=== PATIENT | male | born 1945 | race Caucasian/White ===

== ENCOUNTER → 2020-08-15 02:22 | Outpatient (CLI) | payer MEDICARE, BC, SELFPAY ==
[2020-08-15 19:19] LABS: SARS-CoV-2 RNA PCR Negative
== END ==
PROVIDERS: PCP Family Medicine; Visit Provider Internal Medicine Gastroenterology
DX: Z01.812 Encounter for preprocedural laboratory examination (principal); Z20.822 Contact with and (suspected) exposure to COVID-19
CPT/HCPCS: C9803; U0003; U0005

== ENCOUNTER 2020-08-18 00:06 | Day surgery (SDC) | payer MEDICARE, BC, SELFPAY ==
[2020-08-05 14:42] VITALS: BMI 37.8
--- NOTE | 2020-08-18 07:25 | WPDANESEPPF ---
Anes - Initial Pre Proc Eval Procedure: Operation Date: 08/18/20 08:30 Proposed Procedures p Screening Colonoscopy - Pravin Wang DO Date/Time: 08/18/20 07:25 Surgeon: Pravin Wang DO Pre Op Diagnosis: hx of colon polyps Patient Data Age: 74 Gender: M Height: 5 ft 11 in Weight: 123 kg Allergies Allergy/AdvReac Type Severity Reaction Status Date / Time bacitracin Allergy Intermediate Hives Verified 08/18/20 07:27 Penicillins Allergy Intermediate Hives Verified 08/18/20 07:27 adhesive Allergy Unknown RASH Verified 08/18/20 07:27 gramicidin D Allergy Unknown hives, Verified 08/18/20 07:27 blisters neomycin Allergy Unknown Blister, Verified 08/18/20 07:27 hives polymyxin B Allergy Unknown Hives Verified 08/18/20 07:27 mupirocin AdvReac Intermediate Swelling Verified 08/18/20 07:27 Home Medications Medication Instructions Recorded Confirmed Type apixaban 5 mg tablet 5 mg PO BID 03/12/19 08/05/20 History aspirin 81 mg tablet,delayed 81 mg PO DAILY 03/12/19 08/05/20 History release metoprolol succinate 25 mg 25 mg PO DAILY 03/12/19 08/05/20 History tablet,extended release 24 hr budesonide-formoterol HFA 160 2 puff INHALATION Q12H #10.2 gm 02/23/20 08/05/20 Rx mcg-4.5 mcg/actuation aerosol inhaler albuterol sulfate 90 mcg/actuation 2 inh INHALATION Q6H PRN #36 g 02/25/20 08/05/20 Rx aerosol inhaler cholecalciferol (vitamin D3) 1,250 1,250 mcg PO WEEKLY 56 Days #8 cap 06/24/20 08/05/20 Rx mcg (50,000 unit) capsule omeprazole 20 mg capsule,delayed 20 mg PO DAILY #90 cap 06/24/20 08/05/20 Rx release evolocumab [Repatha Pushtronex] 420 mg SUBCUT MONTHLY 08/05/20 08/05/20 History furosemide 40 mg PO DAILY 08/05/20 08/05/20 History Patient hx anesthesia problems: none Family hx anesthesia problems: none PMFSH Past Medical History Medical History (Updated 08/18/20 @ 07:27 by Myke Puckett MD) Atrial fibrillation and flutter BMI 38.0-38.9,adult BMI 39.0-39.9,adult COPD (chronic obstructive pulmonary disease) Coronary artery disease of bypass graft of [place] heart with stable angina pectoris COVID-19 Essential (primary) hypertension GERD (gastroesophageal reflux disease) Hyperlipidemia PINKY (obstructive sleep apnea) Pacemaker Stage 3 chronic kidney disease TIA (transient ischemic attack) Family History Family History Sibling Family history of heart disease in male family member before age 55 Father Acute myocardial infarction Mother Diabetes mellitus Sibling Family history of heart disease in male family member before age 55 Heart disease Diabetes mellitus Other Family history of cardiovascular disease Hypertension Social History Social History Smoking status: Never smoker Second hand tobacco smoke exposure: Yes Alcohol intake: current Alcohol use details: very rarely Substance use: never Substance use type: does not use Living arrangements: with family 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 Questions were solicited and answers provided to the satisfaction of the patient/family/POA.
[2020-08-18 07:31] VITALS: BP 134/75; PULSE 73; RESP 20; TEMP 36.4; O2SAT 98; BMI 38.0
[2020-08-18] MEDS: LACTATED RINGERS 1,000 ML 150 ML IV CONT (07:42)
--- NOTE | 2020-08-18 08:21 | WPDGICN ---
GI Consult Note Consult date/time: 08/18/20 08:21 HPI: Reason for visit is colonoscopy. This very pleasant gentleman seen in consultation request primary physician. Impression: Screening and surveillance colonoscopy. The patient has a history of adenomatous colon polyps. Patient does have alternating constipation and diarrhea. He has a history of lymphocytic colitis. There may be a component of IBS. GERD well controlled on medication. AFib status post pacemaker. Obesity. COPD. History is COVID-19. CAD. Status post coronary bypass grafting x2. HTN. HLD. TIA. PINKY. CKD. Recommendation: Colonoscopy. History: This very pleasant gentleman complains of occasional constipation and diarrhea. He has a history of adenomatous colon polyps and lymphocytic colitis. He has history reflux disease well controlled on medication. Physical examination: General: very pleasant patient in no acute distress. HEENT: Head was normocephalic sclerae is clear mouth without masses neck was supple. Heart: Rate rhythm regular without S3 or S4. Lungs: CTA. Abdomen: Soft with no guarding or rigidity. Bowel sounds were active. Neurologic: Cranial nerves 2 through 12 intact. No focal defects. No clonus. Musculoskeletal system: Revealed no joint tenderness or swelling no muscle atrophy. Extremities: Reveal no significant edema. Skin: Warm and dry with normal turgor. Mental status: intact. Patient is alert and oriented. Review of Systems Review of Systems: All systems reviewed & are unremarkable except as noted in HPI and below PMFSH Past Medical History Medical History (Updated 08/18/20 @ 07:45 by Pravin Wang, ) Adenomatous colon polyp Atrial fibrillation and flutter BMI 38.0-38.9,adult BMI 39.0-39.9,adult COPD (chronic obstructive pulmonary disease) Coronary artery disease of bypass graft of [place] heart with stable angina pectoris COVID-19 Essential (primary) hypertension GERD (gastroesophageal reflux disease) Hyperlipidemia Lymphocytic colitis PINKY (obstructive sleep apnea) Pacemaker Stage 3 chronic kidney disease TIA (transient ischemic attack) Family History Family History Sibling Family history of heart disease in male family member before age 55 Father Acute myocardial infarction Mother Diabetes mellitus Sibling Family history of heart disease in male family member before age 55 Heart disease Diabetes mellitus Other Family history of cardiovascular disease Hypertension Social History Social History Smoking status: Never smoker Second hand tobacco smoke exposure: Yes Alcohol intake: current Alcohol use details: very rarely Substance use: never Substance use type: does not use Living arrangements: with family 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 Gender identity (if verbalized by the patient): Male Spiritual care concerns: No Meds Home Medications and Allergies Home Medications Medication Instructions Recorded Confirmed Type apixaban 5 mg tablet 5 mg PO BID 03/12/19 08/18/20 History aspirin 81 mg tablet,delayed 81 mg PO DAILY 03/12/19 08/18/20 History release metoprolol succinate 25 mg 25 mg PO DAILY 03/12/19 08/18/20 History tablet,extended release 24 hr budesonide-formoterol HFA 160 2 puff INHALATION Q12H #10.2 gm 02/23/20 08/18/20 Rx mcg-4.5 mcg/actuation aerosol inhaler albuterol sulfate 90 mcg/actuation 2 inh INHALATION Q6H PRN #36 g 02/25/20 08/18/20 Rx aerosol inhaler cholecalciferol (vitamin D3) 1,250 1,250 mcg PO WEEKLY 56 Days #8 cap 06/24/20 08/18/20 Rx mcg (50,000 unit) capsule omeprazole 20 mg capsule,delayed 20 mg PO DAILY #90 cap 06/24/20 08/18/20 Rx release evolocumab [Repatha Pushtronex] 420 mg SUBCUT MONTHLY
[2020-08-18 08:46] VITALS: BP 128/68; PULSE 71; RESP 14; O2SAT 98
[2020-08-18 08:56] VITALS: BP 112/68; PULSE 70; RESP 16; O2SAT 98
[2020-08-18 09:06] VITALS: BP 129/69; PULSE 70; RESP 16; O2SAT 98
== END 2020-08-18 09:23 | disposition home or self-care (01) ==
PROVIDERS: PCP Family Medicine; Visit Provider Internal Medicine Gastroenterology
PROC: 0DJD8ZZ Inspection of Lower Intestinal Tract, Via Natural or Artificial Opening Endoscopic (ICD-10-PCS; CPT 45378; principal; 2020-08-18 08:30)
DX: Z12.11 Encounter for screening for malignant neoplasm of colon (principal); D12.2 Benign neoplasm of ascending colon; D12.4 Benign neoplasm of descending colon; K57.30 Diverticulosis of large intestine without perforation or abscess without bleeding; K64.8 Other hemorrhoids; R19.4 Change in bowel habit; I48.91 Unspecified atrial fibrillation; J44.9 Chronic obstructive pulmonary disease, unspecified; I25.10 Atherosclerotic heart disease of native coronary artery without angina pectoris; I12.9 Hypertensive chronic kidney disease with stage 1 through stage 4 chronic kidney disease, or unspecified chronic kidney disease; N18.30 Chronic kidney disease, stage 3 unspecified; E78.5 Hyperlipidemia, unspecified; G47.33 Obstructive sleep apnea (adult) (pediatric); K21.9 Gastro-esophageal reflux disease without esophagitis; Z95.1 Presence of aortocoronary bypass graft; Z95.0 Presence of cardiac pacemaker; Z86.16 Personal history of COVID-19; Z86.73 Personal history of transient ischemic attack (TIA), and cerebral infarction without residual deficits; Z79.01 Long term (current) use of anticoagulants; Z79.82 Long term (current) use of aspirin; Z79.51 Long term (current) use of inhaled steroids; E66.9 Obesity, unspecified; Z68.38 Body mass index [BMI] 38.0-38.9, adult
CPT/HCPCS: 45385; 45380; 88305; J2704; J7120

== ENCOUNTER 2020-08-29 09:02 | Emergency (ER) | payer MEDICARE, BC, SELFPAY ==
--- NOTE | ~2020-08-29 | CT_ITS ---
EXAMINATION: CT abdomen pelvis wo con DATE: 08/29/2020 10:54 INDICATION: Left flank pain. TECHNIQUE: Computed tomography (CT) of the abdomen and pelvis was performed without intravenous contr ast. Automated exposure control and iterative reconstruction technique were employed. The dose-length product was 1355.77 mGy-cm. COMPARISON: CT abdomen and pelvis 05/10/2014 FINDINGS: The visualized portions of the lung bases demonstrate mild atelectasis. No pleural effusion . The heart size is normal. No pericardial effusion. There is a pacer wire in right ventricle. There is diffuse hepatic steatosis. There are changes of cholecystectomy. The spleen, pancreas, adrenal gla nds, and right kidney are normal. There is a 4 mm stone in left kidney. The prostate is mildly enlarg ed. There are scattered diverticula in the colon. There is fat stranding around a sigmoid diverticulu m with local bowel wall thickening, consistent with diverticulitis. There are no dilated loops of bow el. The appendix is normal. There are no pathologically enlarged lymph nodes. There is no free intrap eritoneal fluid. There is severe lower lumbar spondylosis. IMPRESSION: 1. Acute sigmoid diverticulitis. No perforation or abscess. Reviewed, dictated and finalized at location B.
[2020-08-29 09:16] VITALS: BP 142/73; PULSE 98; RESP 16; TEMP 36.7; O2SAT 94
[2020-08-29 09:31] LABS: Basophils Absolute Auto 0.1 K/mm3 (0.0-0.1); Basophils Percent Auto 0.3 % (0.2-1.2); Eosinophils Absolute Auto 0.1 K/mm3 (0-0.3); Eosinophils Percent Auto 0.6 % (0-4.4); Hematocrit 45.6 % (42.0-52.0); Hemoglobin 14.9 g/dL (14.0-18.0); Immature Granulocyte Absolute 0.08 K/mm3 (0.00-0.031); Immature Granulocyte Percent A 0.5 % (0-0.5); Lymphocytes Absolute Auto 1.45 K/mm3 (0.9-3.2); Lymphocytes Percent Auto 8.2 % (18.3-44.2); Mean Corpuscular HGB Conc 32.7 g/dl (32-36); Mean Corpuscular Hemoglobin 30.7 pg (26-34); Mean Corpuscular Volume 93.8 fl (80-100); Mean Platelet Volume 11.1 fl (7.4-10.4); Monocytes Absolute Auto 1.8 K/mm3 (0.1-0.6); Neutrophils Absolute Auto 14.3 K/mm3 (1.3-6.7); Neutrophils Percent Auto 80.4 % (45.5-73.1); Platelet Count Result 197 k/mm3 (150-375); Red Blood Count 4.86 M/mm3 (4.6-6.20); Red Cell Distribution Width 13.4 % (11.5-14.5); White Blood Count 17.7 K/mm3 (4.5-10.0)
[2020-08-29 09:46] LABS: Anion Gap 4 mmol/L (8-16); Blood Urea Nitrogen 16 mg/dL (9-20); Calcium 9.3 mg/dL (8.4-10.2); Carbon Dioxide 31 mmol/L (22-30); Chloride 102 mmol/L (98-107); Estimated CRCL calculation 56 ml/min; Estimated Glomerular Filt Rate 50; Glucose 114 mg/dL (75-110); Potassium 3.9 mmol/L (3.4-5.0); Sodium 137 mmol/L (137-145)
[2020-08-29 10:05] LABS: Add Urine Microscopic? NO; Appearance Urine Clear (Clear); Bilirubin Urine Negative (Negative); Blood Urine Negative (Negative); Color Urine Yellow (Yellow); Glucose Urine UA Negative (Negative); Ketones Urine Negative (Negative); Leukocyte Esterase Ur Negative LEU/UL (Negative); Nitrate Urine Negative (Negative); Protein Urine Negative (Negative); Specific Grav Ur 1.015 (1.001-1.035); Urobilinogen Urine Negative mg/dL (<2.0)
--- NOTE | 2020-08-29 10:45 | ED.GENADULT ---
HPI - General Adult General Chief complaint: Abdominal Pain Stated complaint: abd pain Time Seen by Provider: 08/29/20 10:40 Source: RN notes reviewed History of Present Illness HPI narrative: Patient presents to emergency room from home for left-sided flank pain. Patient states pain began 2 days ago in the left flank and is since moved in the left lower abdomen. Pain is described as sharp and stabbing. Patient states he has a history of kidney stones and feels similar he denies any chest pain or shortness of breath he does note intermittent subjective fevers at home he states he has not want any pain medication at this time denies any other symptoms Related Data Home Medications Medication Instructions Recorded Confirmed apixaban 5 mg tablet 5 mg PO BID 03/12/19 08/18/20 aspirin 81 mg tablet,delayed 81 mg PO DAILY 03/12/19 08/18/20 release metoprolol succinate 25 mg 25 mg PO DAILY 03/12/19 08/18/20 tablet,extended release 24 hr evolocumab [Repatha Pushtronex] 420 mg SUBCUT MONTHLY 08/05/20 08/18/20 furosemide 40 mg PO DAILY 08/05/20 08/18/20 Allergies Allergy/AdvReac Type Severity Reaction Status Date / Time bacitracin Allergy Intermediate Hives Verified 08/29/20 11:12 Penicillins Allergy Intermediate Hives Verified 08/29/20 11:12 adhesive Allergy Unknown RASH Verified 08/29/20 11:12 gramicidin D Allergy Unknown hives, Verified 08/29/20 11:12 blisters neomycin Allergy Unknown Blister, Verified 08/29/20 11:12 hives polymyxin B Allergy Unknown Hives Verified 08/29/20 11:12 mupirocin AdvReac Intermediate Swelling Verified 08/29/20 11:12 Review of Systems Review of Systems: Narrative: Gen.: Denies fevers or chills ENT: Denies congestion Respiratory: Denies shortness of breath or cough CV: Denies chest pain or palpitations GI: See HPI denies burning, urgency, frequency or hematuria Musculoskeletal: Denies back pain or muscle pain Neuro: Denies numbness, tingling, weakness or focal weakness Skin: Denies rash Except as documented, all other systems reviewed and negative PMFSH Past Medical History Medical History Adenomatous colon polyp Atrial fibrillation and flutter BMI 38.0-38.9,adult BMI 39.0-39.9,adult COPD (chronic obstructive pulmonary disease) Coronary artery disease of bypass graft of [place] heart with stable angina pectoris COVID-19 Essential (primary) hypertension GERD (gastroesophageal reflux disease) Hyperlipidemia Lymphocytic colitis PINKY (obstructive sleep apnea) Pacemaker Stage 3 chronic kidney disease TIA (transient ischemic attack) Family History Family History Sibling Family history of heart disease in male family member before age 55 Father Acute myocardial infarction Mother Diabetes mellitus Sibling Family history of heart disease in male family member before age 55 Heart disease Diabetes mellitus Other Family history of cardiovascular disease Hypertension Social History Social History Smoking status: Never smoker Second hand tobacco smoke exposure: Yes Alcohol intake: current Substance use: never Substance use type: does not use 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 No clubbing, cyano
[2020-08-29] MEDS: SODIUM CHLORIDE 0.9% IV 1,000 ML 999 ML IV CONT (12:11)
[2020-08-29] MEDS: CIPROFLOXACIN 500 MG TAB PO (12:12)
[2020-08-29] MEDS: metroNIDAZOLE 500 MG/ISO 100ML 500 MG/100 ML BAG 100 MG IVPB (12:12)
[2020-08-29 12:22] LABS: Lactic Acid Reflex 1.1 mmol/L (0.7-2.1)
--- NOTE | 2020-08-29 12:41 | PC.NURSE ---
PT AMBULATED, STEADY GAIT, NO ASSISTANCE REQUIRED, PT DENIES DIZZINESS OR SYNCOPE. EDP EFREN INFORMED, PLAN TO DC AFTER MEDICATION AND FLUIDS ARE COMPLETE. PT UPDATED ON PLAN OF CARE, SITTING ON BED, MEDS AND FLUIDS INFUSING.
[2020-08-29 13:15] VITALS: BP 138/75; PULSE 78; RESP 16; O2SAT 97
== END 2020-08-29 13:16 | disposition home or self-care (01) ==
PROVIDERS: Emergency Provider Emergency Medicine; PCP Family Medicine
DX: K57.32 Diverticulitis of large intestine without perforation or abscess without bleeding (principal); I48.91 Unspecified atrial fibrillation; I48.92 Unspecified atrial flutter; I12.9 Hypertensive chronic kidney disease with stage 1 through stage 4 chronic kidney disease, or unspecified chronic kidney disease; N18.30 Chronic kidney disease, stage 3 unspecified; J44.9 Chronic obstructive pulmonary disease, unspecified; I25.118 Atherosclerotic heart disease of native coronary artery with other forms of angina pectoris; E78.5 Hyperlipidemia, unspecified; G47.33 Obstructive sleep apnea (adult) (pediatric); K21.9 Gastro-esophageal reflux disease without esophagitis; Z86.16 Personal history of COVID-19; Z86.73 Personal history of transient ischemic attack (TIA), and cerebral infarction without residual deficits; Z86.010 Personal history of colon polyps; Z79.01 Long term (current) use of anticoagulants; Z79.82 Long term (current) use of aspirin; Z95.0 Presence of cardiac pacemaker
CPT/HCPCS: 36415; 74176; 80048; 81003; 83605; 85025; 96365; 99284; A9270; J7030

== ENCOUNTER 2021-10-17 00:13 | Day surgery (SDC) | payer MEDICARE, BC, SELFPAY ==
[2021-10-12 09:37] VITALS: BMI 37.8
--- NOTE | 2021-10-16 13:15 | WPDANESEPPF ---
Anes - Initial Pre Proc Eval Procedure: Operation Date: 10/17/21 09:45 Proposed Procedures p Esophagogastroduodenoscopy & Colonoscopy - Lang Riddle MD Date/Time: 10/16/21 13:15 Surgeon: Lang Riddle MD Pre Op Diagnosis: melena, epigastric pain Patient Data Age: 75 Gender: M Height: 1.8 m Weight: 123 kg Allergies Allergy/AdvReac Type Severity Reaction Status Date / Time ciprofloxacin [From Cipro] Allergy Severe Rash Verified 10/17/21 08:29 bacitracin Allergy Intermediate Hives Verified 10/17/21 08:29 Penicillins Allergy Intermediate Hives Verified 10/17/21 08:29 adhesive Allergy Unknown RASH Verified 10/17/21 08:29 gramicidin D Allergy Unknown hives, Verified 10/17/21 08:29 blisters neomycin Allergy Unknown Blister, Verified 10/17/21 08:29 hives polymyxin B Allergy Unknown Hives Verified 10/17/21 08:29 mupirocin AdvReac Intermediate Swelling Verified 10/17/21 08:29 Home Medications Medication Instructions Recorded Confirmed Type apixaban 5 mg tablet (Eliquis) 5 mg PO BID 03/12/19 10/12/21 History metoprolol succinate 25 mg 25 mg PO DAILY 03/12/19 10/12/21 History tablet,extended release 24 hr albuterol sulfate 90 mcg/actuation 2 inh inhalation Q6H PRN shortness 02/25/20 10/12/21 Rx aerosol inhaler of breath or wheezing #36 grams evolocumab 420 mg/3.5 mL 420 mg subcut MONTHLY 08/05/20 10/12/21 History subcutaneous wearable injector (Repatha Pushtronex) furosemide 40 mg tablet 40 mg PO DAILY 08/05/20 10/12/21 History cholecalciferol (vitamin D3) 125 125 mcg PO DAILY #90 caps 07/11/21 10/12/21 Rx mcg (5,000 unit) capsule sodium sul 1.479 gram-potas ch See Rx Instructions PO PER PKG DIR 08/18/21 Rx 0.188 gram-magnes sul 0.225 gram #24 tabs tablet (Sutab) budesonide-formoterol HFA 160 2 puff inhalation Q12H #10.2 grams 08/29/21 10/12/21 Rx mcg-4.5 mcg/actuation aerosol inhaler (Symbicort) omeprazole 20 mg capsule,delayed 20 mg PO DAILY 10/12/21 10/12/21 History release Patient hx anesthesia problems: none Family hx anesthesia problems: none Results Review: All pre-operative results and documents have been reviewed as part of the pre-operative evaluation. [facility] Past Medical History Medical History Adenomatous colon polyp Atrial fibrillation and flutter BMI 38.0-38.9,adult BMI 39.0-39.9,adult COPD (chronic obstructive pulmonary disease) Coronary artery disease of bypass graft of [place] heart with stable angina pectoris COVID-19 Essential (primary) hypertension GERD (gastroesophageal reflux disease) Hyperlipidemia Ischemic heart disease Lymphocytic colitis PINKY (obstructive sleep apnea) Pacemaker Stage 3 chronic kidney disease TIA (transient ischemic attack) Family History Family History Sibling Family history of heart disease in male family member before age 55 Father Acute myocardial infarction Mother Diabetes mellitus Sibling Family history of heart disease in male family member before age 55 Heart disease Diabetes mellitus Other Family history of cardiovascular disease Hypertension Social History Social History Smoking status: Former smoker Tobacco type: smokeless tobacco Smokeless tobacco user: chewing tobacco Second hand tobacco smoke exposure: Yes Alcohol intake: current Drinks per week: 3 Alcohol use details: very rarely Substance use: never Substance use type: does not use Living arrangements: with family 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
[2021-10-17 08:30] VITALS: BP 121/70; PULSE 84; RESP 18; TEMP 36.2; O2SAT 99; BMI 37.0
[2021-10-17] MEDS: LACTATED RINGERS 1,000 ML 150 ML IV CONT (08:59)
--- NOTE | 2021-10-17 09:06 | PM.HPGS ---
History of Present Illness History of Present Illness Consent: Risks, benefits, and alternatives have been discussed and questions answered. Patient agrees to proceed with procedure. Chief complaint: melena, epigastric pain Narrative: Jem Reese is a 75 year old male with history of heart disease on metoprolol and eliquis, several weeks ago started on jardiance and noted change in color of stool and more loose than usual, also had occult blood in stool with abdominal pain. Symptoms improved after discontinued jardiance. 2020 had colonoscopy with TA polyp. About 20 years ago had gastric ulcers when was using nsaid's. GERD controlled on omeprazole daily. Review of Systems Constitutional: Constitutional: Denies headache(s) and Denies weakness Eyes: Eyes: Denies blurry vision ENT: Reports Normal hearing present, Denies headache(s) and Denies neck pain Cardiovascular: Cardiovascular: Denies chest pain and Denies dyspnea Respiratory: Respiratory: Denies dyspnea Gastrointestinal: Gastrointestinal: Reports no additional gastrointestinal complaints Genitourinary: Genitourinary: Denies dysuria Musculoskeletal: Musculoskeletal: Denies neck pain Integumentary/Breasts: Skin/Breast: Denies dry skin Neurologic: Reports Normal hearing present, Denies headache(s) and Denies weakness Psychiatric: Psychiatric: Denies anxiety Endocrine: Endocrine: Denies change in body appearance Hematologic/Lymphatic: Hematologic/Lymphatic: Denies easy bleeding Allergic/Immunologic: Allergic/Immunologic: Denies urticaria PMFSH Past Medical History Medical History (Updated 10/17/21 @ 09:09 by Lang Riddle MD) Adenomatous colon polyp Adenomatous colon polyp Atrial fibrillation and flutter BMI 38.0-38.9,adult BMI 39.0-39.9,adult COPD (chronic obstructive pulmonary disease) Coronary artery disease of bypass graft of [place] heart with stable angina pectoris COVID-19 Essential (primary) hypertension GERD (gastroesophageal reflux disease) Hyperlipidemia Ischemic heart disease Lymphocytic colitis Occult blood in stools PINKY (obstructive sleep apnea) Pacemaker Stage 3 chronic kidney disease TIA (transient ischemic attack) Family History Family History Sibling Family history of heart disease in male family member before age 55 Father Acute myocardial infarction Mother Diabetes mellitus Sibling Family history of heart disease in male family member before age 55 Heart disease Diabetes mellitus Other Family history of cardiovascular disease Hypertension Social History Social History Smoking status: Former smoker Tobacco type: smokeless tobacco Smokeless tobacco user: chewing tobacco Second hand tobacco smoke exposure: Yes Alcohol intake: current Drinks per week: 3 Alcohol use details: very rarely Substance use: never Substance use type: does not use Living arrangements: with family 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 Gender identity (if verbalized by the patient): Male Spiritual care concerns: No Meds Home Medications and Allergies Home Medications Medication Instructions Recorded Confirmed Type apixaban 5 mg tablet (Eliquis) 5 mg PO BID 03/12/19 10/12/21 History metoprolol succinate 25 mg 25 mg PO DAILY 03/12/19 10/12/21 History tablet,extended release 24 hr albuterol sulfate 90 mcg/actuation 2 inh inhalation Q6H PRN shortness 02/25/20 10/12/21 Rx aerosol inhaler of breath or wheezing #36 grams evolocumab 420 mg/3.5 mL 420 mg subcut MONTHLY 08/05/20 10/12/21 History subcutaneous wearable injector (Repatha Pushtronex) furosemide 40 mg tablet 40 mg PO DAILY 08/05/20 10/12/21 History cholecalciferol (vitamin D3) 125 125 mcg PO DAILY #90 caps 07/11/21 10/12/21 Rx mcg (5,000 unit) capsule sodium sul 1.479 gra
[2021-10-17] MEDS: BENZOCAINE (*SP) 60 ML SPRAY CAN (HURRICAINE) 1 SPRAY MUCOUS MEM (09:18)
--- NOTE | 2021-10-17 09:29 | SUR.OPER ---
EGD: [id number] Colonoscopy began at 926
[2021-10-17 09:41] VITALS: BP 127/78; PULSE 70; RESP 14; O2SAT 100
[2021-10-17 09:51] VITALS: BP 136/69; PULSE 97; RESP 18; O2SAT 99
[2021-10-17 10:01] VITALS: BP 132/72; PULSE 80; RESP 22; O2SAT 100
== END 2021-10-17 10:15 | disposition home or self-care (01) ==
PROVIDERS: PCP Family Medicine; Visit Provider Internal Medicine Gastroenterology
PROC: 0DJ08ZZ Inspection of Upper Intestinal Tract, Via Natural or Artificial Opening Endoscopic (ICD-10-PCS; CPT 43235; principal; 2021-10-17 09:45)
DX: K92.1 Melena (principal); R19.7 Diarrhea, unspecified; K63.5 Polyp of colon; K57.30 Diverticulosis of large intestine without perforation or abscess without bleeding; K64.8 Other hemorrhoids; K29.70 Gastritis, unspecified, without bleeding; K21.9 Gastro-esophageal reflux disease without esophagitis; I25.708 Atherosclerosis of coronary artery bypass graft(s), unspecified, with other forms of angina pectoris; J44.9 Chronic obstructive pulmonary disease, unspecified; I11.9 Hypertensive heart disease without heart failure; I25.9 Chronic ischemic heart disease, unspecified; E78.5 Hyperlipidemia, unspecified; G47.33 Obstructive sleep apnea (adult) (pediatric); I12.9 Hypertensive chronic kidney disease with stage 1 through stage 4 chronic kidney disease, or unspecified chronic kidney disease; N18.30 Chronic kidney disease, stage 3 unspecified; I48.91 Unspecified atrial fibrillation; Z86.73 Personal history of transient ischemic attack (TIA), and cerebral infarction without residual deficits; Z79.01 Long term (current) use of anticoagulants; Z79.51 Long term (current) use of inhaled steroids; F17.220 Nicotine dependence, chewing tobacco, uncomplicated; E66.9 Obesity, unspecified; Z68.37 Body mass index [BMI] 37.0-37.9, adult; Z86.16 Personal history of COVID-19
CPT/HCPCS: 45380; 43239; 87081; 88305; J2704; J7120

== ENCOUNTER 2022-08-29 11:12 | Outpatient (CLI) | payer MEDICARE, BC, SELFPAY ==
--- NOTE | ~2022-08-29 | US_ITS ---
EXAMINATION:US venous doppler LE RT INDICATION:Right leg pain, swelling and palpable lump TECHNIQUE: Multiple grayscale, color flow and Doppler images of the right lower extremity deep venous systems were obtained and reviewed. COMPARISON:01/01/2008 FINDINGS: The common femoral, superficial femoral and popliteal veins demonstrate normal respiratory variation, augmentation and compressibility. Color flow is also seen within the posterior tibial, pe roneal, greater saphenous and profunda veins. In the area of palpable concern/bruising there is a sma ll fluid collection measuring 2.2 x 2.6 x 0.6 cm, likely posttraumatic hematoma/seroma. IMPRESSION: 1: No lower extremity deep venous thrombosis. Reviewed, dictated and finalized at location B.
== END 2022-08-29 11:13 | disposition home or self-care (01) ==
PROVIDERS: PCP Family Medicine; Visit Provider Physician Assistant Medical
DX: M79.89 Other specified soft tissue disorders (principal)
CPT/HCPCS: 93971

== ENCOUNTER 2022-09-10 13:50 | Outpatient (CLI) | payer MEDICARE, BC, SELFPAY ==
--- NOTE | ~2022-09-10 | XR_ITS ---
XR tibia fibula RT 2V DATE: 09/10/2022 14:11 INDICATION: Swelling. Melanoma. TECHNIQUE: AP and lateral views of right lower leg COMPARISON: 01/09/2008 right knee FINDINGS: Moderately prominent osteophytic changes noted at the lateral compartment of the right knee . There is tibiotalar osteoarthritis. No fracture or dislocation, periosteal reaction or bone destruction of the tibia or fibula is detecte d. IMPRESSION: Polyarticular osteoarthritis Reviewed, dictated and finalized at location B.
== END 2022-09-10 13:51 | disposition home or self-care (01) ==
LOC: ANHIMG 13:56
PROVIDERS: PCP Family Medicine; Visit Provider Physician Assistant Medical
DX: M79.89 Other specified soft tissue disorders (principal); K92.1 Melena; M17.11 Unilateral primary osteoarthritis, right knee
CPT/HCPCS: 73590

== ENCOUNTER → 2023-05-30 08:53 | Outpatient (CLI) | payer MEDICARE, BC, SELFPAY ==
--- NOTE | ~2023-05-30 | US_ITS ---
Abdominal Sonogram: Real-time sonographic imaging of the abdomen was performed. Clinical History: Abnormal blood chemistry Findings: The liver appears echogenic, with no evidence of mass lesion or bile duct dilatation. Main portal vein demonstrates normal direction of flow. The spleen is normal in size without evidence of focal lesion. The gallbladder is absent, compatible prior cholecystectomy. The common bile duct kenneth ures 6 mm. The visualized pancreas, aorta, and IVC are unremarkable. The right kidney measures 9.6 cm in length and the left kidney measures 10.1 cm. There is no hydronephrosis or renal calculus. Impression: Diffuse fatty infiltration of the liver. Status post cholecystectomy. Reviewed, dictated and finalized at location . [employer] Impression: Diffuse fatty infiltration of the liver. Status post cholecystectomy.
== END ==
PROVIDERS: PCP Physician Assistant Medical; Visit Provider Physician Assistant Medical
DX: R79.89 Other specified abnormal findings of blood chemistry (principal); Z90.49 Acquired absence of other specified parts of digestive tract; K76.0 Fatty (change of) liver, not elsewhere classified
CPT/HCPCS: 76700